=== PATIENT | female | born 1990 | race Caucasian/White ===

== ENCOUNTER → 2020-01-21 09:50 | Outpatient (BNVA) | payer BC, SELFPAY | PROVIDERS: Family Provider Family Medicine; Visit Provider Nurse Practitioner Family | DX: R63.5 Abnormal weight gain (principal); E55.9 Vitamin D deficiency, unspecified; R53.83 Other fatigue; Z13.6 Encounter for screening for cardiovascular disorders; Z79.899 Other long term (current) drug therapy | CPT/HCPCS: 36415; 80053; 80061; 81003; 82306; 83036; 84439; 84443; 84481; 85025 ==

== ENCOUNTER 2020-10-17 15:15 | Outpatient (CLI) | payer BC, OTHER, SELFPAY ==
--- NOTE | 2020-10-17 15:30 | US_ITS ---
WS: [id number] ULTRASOUND EARLY TECHNIQUE: Transabdominal sonography of the pelvis was performed. Followed by transvaginal sonography to better evaluate the uterus and ovaries. CLINICAL INFORMATION: SUPERVISION NORMAL PG LMP: 08/13/2020 Beta hCG: Unknown. COMPARISON: None. FINDINGS: Cervix is long and closed. UTERUS AND GESTATIONAL SAC Intrauterine gestations: Single live intrauterine with visualized cardiac activity. Estimated gestational age: 9w3d Yolk sac: 0.6 cm. [facility] rump length (CRL): 2.6 cm. heart motion: 171 BPM. Subchorionic hemorrhage: Present measuring 2.9 x 2.5 x 1.8 cm OVARIES Right ovary: Not seen Left ovary: Normal. FREE FLUID None. US/US OB <= 14 weeks fetus [id number] IMPRESSION: 1. Single live intrauterine with cardiac activity. 2. Estimated gestational age; 9w3d with estimated delivery May 19, 2021 3. Small amount of subchorionic hemorrhage measuring 2.9 x 2.5 x 1.8 cm. Recom mend short interval follow-up. 4. Cervix is long and closed. 5. No free fluid in the cul-de-sac.
== END 2020-10-17 15:16 | disposition home or self-care (01) ==
LOC: US 15:22
PROVIDERS: PCP Family Medicine; Visit Provider Family Medicine
DX: Z34.81 Encounter for supervision of other normal pregnancy, first trimester; Z3A.09 9 weeks gestation of pregnancy
CPT/HCPCS: 76801

== ENCOUNTER 2021-05-13 16:07 | Inpatient (IN) | payer BC, SELFPAY ==
--- NOTE | 2020-12-29 10:15 | US_ITS ---
WS: [id number] OBSTETRICAL ULTRASOUND COMPLETE HISTORY: ANATOMY/NORMAL ,MULTIPAROUS COMPARISON: 10/17/2020 Single intrauterine gestation in Cephalic presentation. Cervix is Closed and normal length. Cervical length is 4.7 cm. Normal amount of amniotic fluid surrounds the fetus. Placenta: Posterior and fundal. Placenta grade 1 Heart: 131 BPM. Four chambers are identified. RIGHT and LEFT outflow tracts are unremarkable. Anatomy: There is a very tiny choroid plexus cyst on the RIGHT measuring 4 mm. Typically an incidenta l finding. Otherwise the spine and intracranial structures are negative. kidneys, stomach and u rinary bladder are unremarkable. Abdominal wall, three-vessel cord and cord insertion site are normal . 4 extremities are present. profile: Limited. Gender: Male. measurements: BPD = 4.7 cm = 20w2d HC = 18.0 cm = 20w3d AC = 15.1 cm = 20w2d FL = 3.4 cm = 20w4d EFW: 352 g. Biometry is internally concordant. AGA by ultrasound: 20w3d DEBBIE by ultrasound: 05/15/2021 US/US OB >= 14 weeks fetus [id number] IMPRESSION: 1. Single intrauterine gestation of 20w3d with an DEBBIE of 05/15/2021. Appropria te growth since the first trimester ultrasound. 2. Single RIGHT choroid plexus cyst measures 4 mm. As an isolated finding this is usually of no consequence. 3. Poor visualization of the nose and lips.
[2021-05-13] VITALS (21 sets, daily range): BP systolic 103–130; BP diastolic 58–84; PULSE 56–190; RESP 17; BMI 39.5
--- NOTE | 2021-05-13 16:30 | P.HP_ITS ---
Providers/Chief Complaint Admitting Physician: Chavo Sanon MD Primary Care Provider: Chavo Sanon MD Chief Complaint: ANATOMY SCAN Z34.80 History of Present Illness Cheryl Vera is a 30 year old G3, P1 at 39.0 weeks gestation by LMP consistent with 7-week ultrasound. Her is complicated by rapid weight gain, history of third-degree laceration, anemia, COVID-19 infection February 2021. The patient requested to be induced electively at 39 weeks and is here for a scheduled induction The patient currently feels well. She denies any chest pains, shortness of breath, fever, cough, nausea, vomiting, diarrhea, constipation, dysuria. She denies any leakage of fluid, vaginal bleeding, significant contractions. Medications/Allergies Home Medications Medication Instructions Recorded Confirmed Last Taken Type citalopram 10 mg tablet (Celexa) 10 mg PO DAILY 30 Days #30 tab 12/05/19 07/21/20 Unknown Rx methylprednisolone 4 mg tablets in See Rx Instructions PO PER PKG DIR 07/21/20 07/21/20 Unknown Rx a dose pack (Medrol (Edward)) #21 ea Allergies Allergy/AdvReac Type Severity Reaction Status Date / Time Sulfa (Sulfonamide Allergy Intermediate rash Verified 07/21/20 11:50 Antibiotics) PFSH Acute PFSH: Medical History (Updated 05/13/21 @ 16:35 by Chavo Sanon MD) COVID-19 affecting in third trimester Fatigue Hx of maternal laceration, 3rd degree, currently Hypertension screen Rhus dermatitis Vitamin D deficiency Weight gain Surgical History (Updated 05/13/21 @ 16:35 by Chavo Sanon MD) History of tonsillectomy Social History Smoking and tobacco status: never smoked Second hand smoke exposure: No Alcohol intake: never Desire information about alcohol rehabilitation?: No Counseling given: No Desire information about substance/drug rehabilitation?: No Counseling given: No Physical Exam Narrative: General: Alert and oriented x3 Eyes: Pupils equal round and reactive to light and accommodation Mouth: Mucous membranes moist, pharynx non-erythematous Cardiac: Regular rate and rhythm without murmurs Lungs: Clear to auscultation bilaterally without wheezes, crackles or rhonchi Abdomen: Soft, non-tender, fundus consistent with gestational age Cervix:260/-3/soft/mid Extremities: Trace edema in the bilateral lower extremities A&P Assessment and plan (1) Intrauterine : Status: Acute (2) Anemia: Status: Acute Plan The patient is currently doing well. heart tones are in the mid 150s with moderate variability and good accelerations. She has a category 1 heart tone tracing. The patient is francesco every 2 to 3 minutes. The patient is GBS negative. Since the patient had Covid in February, no testing was done on a routine basis for this admission. The patient wishes to have a bilateral tubal ligation only if she were to need a section. Overall the patient is doing well and we will proceed with induction of labor using Pitocin. All questions were answered. Attestations Medical Necessity Statement*: The patient will be here for greater than 2 midnights due to routine intrapartum and management of labor and delivery. 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
[2021-05-13 17:06] LABS: Basophils # 0.1 10^3/uL (0.0-0.1); Basophils % 0.4 %; Eosinophils % 0.3 %; Hematocrit 35.6 % (37.0-47.0); Lymphocytes # 1.9 10^3/uL (0.8-4.8); Lymphocytes % 16.4 %; Mean Corpuscular HGB Conc 33.7 g/dL (30.0-36.0); Mean Corpuscular Hemoglobin 29.1 pg (28.0-34.0); Mean Corpuscular Volume 86.4 fl (81-99); Mean Platelet Volume 11.7 fL (7.4-10.4); Monocytes # 0.9 10^3/uL (0.2-0.9); Monocytes % 8.3 %; Neutrophils # 8.22 10^3/uL (1.8-7.7); Neutrophils % 72.6 %; Nucleated Red Blood Cells % 0 %; Platelet Count 156 10^3/cmm (130-400); Red Blood Count 4.12 10^6/uL (4.1-5.3); Red Cell Distribution Width 13.5 % (12.1-15.1); White Blood Count 11.3 10^3/uL (4.0-10.0)
[2021-05-13] MEDS: dextrose 5%-lactated ringers 1,000 ML 125 ML IV (17:43)
[2021-05-13] MEDS: oxytocin 30 UNIT/500 ML BAG IV (17:43)
[2021-05-13] MEDS: butorphanol 2 mg/mL SDV 1 mL 1 MG IVP (23:21)
[2021-05-14] VITALS (97 sets, daily range): BP systolic 86–155; BP diastolic 51–89; PULSE 59–123; RESP 16–18; TEMP 36.3–37.2; O2SAT 98–100
[2021-05-14] MEDS: lactated ringers 1,000 ML 999 ML IV ×2 (01:14→02:14)
[2021-05-14] MEDS: butorphanol 2 mg/mL SDV 1 mL 1 MG IVP (01:20)
--- NOTE | 2021-05-14 02:37 | P.ANESASSM_ITS ---
Pre-Anesthetic Assessment Height/Weight: Height 1.68 m Weight 111.13 kg Pulse Resp BP Pulse Ox 107 H 17 104/52 100 05/14/21 02:33 05/13/21 17:00 05/14/21 02:33 05/14/21 02:28 Preop Diagnosis: Labor pain VIDYA Was Beta Juliet taken within 24 hours: N/A Was Clonidine taken within 24 hours: N/A Social No alcohol and No tobacco Exam alert, oriented x 3, clear to auscultation bilaterally and regular rate & rhythm Airway Submandibular: within normal limits Cervical ROM: within normal limits Mallampati: Class II Dentition: full History/ROS No significant history except as noted and No significant complaints Pulmonary None reported CV/HEM None reported None reported Hepatic None reported GI Gastroesophageal Reflux Disease Metabolic None reported Musc/skel None reported Neuropsych None reported Anesthetic Plan ASA status: 2 Anesthesia: Anesthesia Evaluation and Regional (specify below) Other: VIDYA Risk of > 500 ml blood loss (7ml/kg in children): No Medications/Allergies Home Medications Medication Instructions Recorded Confirmed Last Taken Type citalopram 10 mg tablet (Celexa) 10 mg PO DAILY 30 Days #30 tab 12/05/19 05/0 06/08 Unknown Rx methylprednisolone 4 mg tablets in See Rx Instructions PO PER PKG DIR 07/21/20 07/21/20 Unknown Rx a dose pack (Medrol (Edward)) #21 ea Allergies Allergy/AdvReac Type Severity Reaction Status Date / Time Sulfa (Sulfonamide Allergy Intermediate rash Verified 07/21/20 11:50 Antibiotics) Current Medications Generic Name Dose Route Start Last Admin Trade Name Freq PRN Reason Stop Dose Admin Butorphanol Tartrate 1 mg 05/13/21 23:14 05/14/21 01:20 Butorphanol 2 Mg/Ml Sdv 1 Ml IVP 1 mg Q2H PRN Administration SEVERE PAIN Oxytocin 30 unit in 500 mls @ 1 mls/hr 05/13/21 17:00 05/13/21 21:15 Pitocin IV 20 milliunit/min .Q24H DENISE 20 mls/hr Titration Protocol 1 MILLIUNIT/MIN Dextrose/Lactated Ringer's 1,000 mls @ 125 mls/hr 05/13/21 17:00 05/14/21 01 :14 Dextrose 5%-Lactated Ringers IV Infused .Q8H DENISE Infusion Lactated Ringer's 1,000 mls @ 999 mls/hr 05/14/21 01:08 05/14/21 01:14 Lactated Ringers IV 999 mls/hr .Q1H1M PRN Administration See label comments PFSH Anesthesia Medical History (Updated 05/13/21 @ 16:35 by Chavo Sanon MD) COVID-19 affecting in third trimester Fatigue Hx of maternal laceration, 3rd degree, currently Hypertension screen Rhus dermatitis Vitamin D deficiency Weight gain Surgical History (Updated 05/13/21 @ 16:35 by Chavo Sanon MD) History of tonsillectomy Social History Smoking and tobacco status: never smoked Second hand smoke exposure: No Alcohol intake: never Desire information about alcohol rehabilitation?: No Counseling given: No Desire information about substance/drug rehabilitation?: No Counseling given: No Female Reproductive History : 2 Data Anesthesia : 05/13/21 16:46 Short CBC 05/13/21 Range/Units 16:46 WBC 11.3 H (4.0-10.0) 10^3/uL Hgb 12.0 (11.5-15.3) g/dL Hct 35.6 L (37.0-47.0) % MCV 86.4 (81-99) fl Plt Count 156 (130-400) 10^3/cmm Neut % (Auto) 72.6 % Neut # (Auto) 8.22 H (1.8-7.7) 10^3/uL Cardiac Studies: No Data to Display
--- NOTE | 2021-05-14 02:38 | P.ANES_ITS ---
Anesthesia Procedures Procedure/Date: 05/14/21 Epidural: Time Out Performed: Yes Consents Signed: Procedure Consent Consent: from patient, risks and benefits reviewed and patient agrees to proceed Lumbar Level: L3-L4 Epidural position: sitting Epidural procedure: sterile prep of area, 1% lidocaine to numb the area, 18 g needle, negative for p aresthesia passed, neg for paresthesia, test dose given, 1.5% xylocaine 1:200k epi (5cc), 0.2% Ropivacaine bolus ml (4cc and Fentanyl 100mcg), no systemic response, sterile dressing applied, L.U.D. no apparent complications and 0.2% Ropiavacaine @ mls/hr (13cc/hour) Additional Comments: BRISA at 7cm. Cath passed 2cm into epid space. Pt tolerated well
[2021-05-14] MEDS: dextrose 5%-lactated ringers 1,000 ML 125 ML IV ×2 (03:14→08:10)
--- NOTE | 2021-05-14 07:07 | PM.MISC ---
Miscellaneous Note Note: The patient's heart tones are currently in the mid 140s with moderate variability and good accelerations. Currently she has a category 1 tracing. She is francesco every 1 to 2 minutes on 7 units of Pitocin. She is currently 8 cm dilated and is noted to have some swelling on the anterior cervix. head position is still -3 and not distended well with contractions. Possible causes for this would be OP positioning versus cephalic pelvic disproportion. We will try some different position changes to relieve this. If this is not successful, a section may need to be considered. We will continue to follow based on findings. I discussed this with the patient and she is in agreement with the current plan of care.
--- NOTE | 2021-05-14 10:53 | PM.DELIVERY ---
Delivery Note: Date of delivery: May 14, 2021 Pre-delivery diagnoses: 1. Intrauterine at 39.1 weeks gestation 2. Rapid weight gain 3. History of third-degree laceration 4. Anemia 5. COVID-19 infection in February 2021 Post-delivery diagnoses: 1. Intrauterine status post spontaneous vaginal delivery at 39.1 weeks gestation 2. Rapid weight gain 3. History of third-degree laceration 4. Anemia 5. COVID-19 infection in February 2021 6. Delivery of healthy male weighing 9 pounds 8 ounces with Apgars of 8 and 9 Procedure: Spontaneous vaginal delivery Delivering Physician: Chavo Sanon MD Estimated blood loss (mL): 200 Findings: Cheryl Vera is a 30 year old G3 now P2 status post spontaneous vaginal delivery at 39.1 weeks gestation by LMP consistent with 7-week ultrasound.? Her was complicated by rapid weight gain, history of third-degree laceration, anemia, COVID-19 infection February 2021. Pre-Delivery Course: The patient presented to labor and delivery triage on 05/13/2021 for a scheduled elective induction of labor. The patient was 2 cm upon presentation and started on IV Pitocin. She made gradual change and had regular contractions. SROM took place at 1:42 AM on 05/14/2021. Clear fluid was noted. The patient continued to make change, however it was slower than the expected labor curve. There was concern that the 's head was not descending properly, but after some position changes, the descended and the patient was complete at 9:02 AM on 05/14/2021. Delivery: The patient began pushing at 9:14 AM on 05/14/2021. The patient pushed well and the delivered at 9:36 AM on 05/14/2021 in the OA position. The left shoulder was the anterior shoulder and it delivered with steady downward pressure. The rest of the infant delivered without complication. The 's mouth and nose were bulb suctioned by myself and the infant was placed on the mother's chest where the nurses were waiting to care for him. The cord was clamped after approximately 1 minute by myself, and cut by the 's father. The cord was then drained of blood and a sample was obtained. Traction was placed on the umbilical cord and the uterus was massaged. The placenta delivered without complication at 9:42 AM on 05/14/2021. The placenta was noted to be intact with a central umbilical cord insertion site. The uterus was massaged and there was little bleeding. The vaginal wall was inspected and a second-degree laceration was noted in the perineal region. The patient's epidural was providing adequate anesthesia. 3-0 Vicryl was used to repair the laceration in a running fashion. A rectal exam was done and no sutures were noted in the rectal vault. The patient tolerated the procedure well. Currently both the mother and infant are doing well. 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
--- NOTE | 2021-05-14 13:40 | PC.NURSE ---
1240 PT UP TO BATHROOM INSTRUCTED ON PERICARE,ETEC, THEN PT AMBULATED TO OB 7, ORIENTED TO ROOM, CALL LIGHT AND BED CONTROLS. TOLD HER THAT I WOULD LIKE TO HELP HER UP ONCE MORE AND THEN SHE CAN BE UP ON HER OWN.
[2021-05-14] MEDS: ibuprofen 800 mg tablet PO ×2 (15:21→21:03)
[2021-05-14] MEDS: lanolin oint 7 gm 1 APPLIC TOPICAL (15:28)
[2021-05-14] MEDS: benzocaine-menthol 78 gm Canister 1 SPRAY TOPICAL (15:29)
[2021-05-15 04:00] VITALS: BP 105/68; PULSE 72; RESP 16; TEMP 36.8; O2SAT 98
[2021-05-15 04:02] LABS: Hematocrit 29.5 % (37.0-47.0); Hemoglobin 9.7 g/dL (11.5-15.3); Mean Corpuscular HGB Conc 32.9 g/dL (30.0-36.0); Mean Corpuscular Hemoglobin 28.9 pg (28.0-34.0); Mean Corpuscular Volume 87.8 fl (81-99); Mean Platelet Volume 11.6 fL (7.4-10.4); Platelet Count 137 10^3/cmm (130-400); Red Blood Count 3.36 10^6/uL (4.1-5.3); Red Cell Distribution Width 13.6 % (12.1-15.1); White Blood Count 14.6 10^3/uL (4.0-10.0)
--- NOTE | 2021-05-15 07:15 | PM.DCS ---
Discharge Providers Date of Admission: 05/13/21 16:07 Date of Discharge: May 15, 2021 Attending Provider at Admission: Chavo Sanon MD Attending Provider at Discharge: Chavo Sanon MD Primary Care Provider: Chavo Sanon MD Diagnoses at Discharge Discharge Diagnosis (1) Intrauterine : Status: Resolved (2) Anemia: Status: Acute Other Information Additional DC diagnoses/information: 1.? Intrauterine status post spontaneous vaginal delivery at 39.1 weeks gestation 2.? Rapid weight gain 3.? History of third-degree laceration 4.? Anemia 5.? COVID-19 infection in February 2021 6.? Delivery of healthy infant male weighing 9 pounds 8 ounces with Apgars of 8 and 9? Reason for Visit Reason for Visit: ANATOMY SCAN Z34.80 Hospital Course Hospital Course The patient presented to labor and delivery triage on 05/13/2021 for a scheduled elective induction of labor.? The patient was 2 cm upon presentation and started on IV Pitocin.? She made gradual change and had regular contractions.? SROM took place at 1:42 AM on 05/14/2021.? Clear fluid was noted.? The patient continued to make change, however it was slower than the expected labor curve.? There was concern that the infant's head was not descending properly, but after some position changes, the infant descended and the patient was complete at 9:02 AM on 05/14/2021. The patient began pushing at 9:14 AM on 05/14/2021.? The patient pushed well and the infant delivered at 9:36 AM on 05/14/2021 in the OA position.? The left shoulder was the anterior shoulder and it delivered with steady downward pressure.? The rest of the infant delivered without complication.? The 's mouth and nose were bulb suctioned by myself and the infant was placed on the mother's chest where the nurses were waiting to care for him.? The cord was clamped after approximately 1 minute by myself, and cut by the infant's father.? The cord was then drained of blood and a sample was obtained.? Traction was placed on the umbilical cord and the uterus was massaged.? The placenta delivered without complication at 9:42 AM on 05/14/2021.? The placenta was noted to be intact with a central umbilical cord insertion site.? The uterus was massaged and there was little bleeding.? The vaginal wall was inspected and a second-degree laceration was noted in the perineal region.? The patient's epidural was providing adequate anesthesia.? 3-0 Vicryl was used to repair the laceration in a running fashion.? A rectal exam was done and no sutures were noted in the rectal vault.? The patient tolerated the procedure well.? the patient is doing well. She is ambulating, voiding, passing gas and tolerating food by mouth. Her pain is well controlled. Her bleeding is decreasing well. She is showing no signs of complications. We will plan to discharge home this afternoon and follow-up with me in clinic at 6 weeks or sooner if needed. Routine discharge instructions were discussed. All questions were answered. The patient and her are in agreement with current plan of care. Physical Exam Narrative: General: Alert and oriented x3 Cardiac: Regular rate and rhythm without murmurs Lungs: Clear to auscultation bilaterally without wheezes, crackles or rhonchi Abdomen: Soft, mild tenderness over uterus. The uterus is firm and 2 cm below the umbilicus. Extremities: Trace edema in the bilateral lower extremities Urinary Catheter Management: Warner: Cath Placed During This Visit: yes, but has since been removed by the nurse Reason for Continuing Indwelling Catheter: Required Immobilization for Trauma or Surgery or Anesthesia Urinary Catheter Date of Insertion: 05/14/21 Urinary Catheter Time of Insertion: 03:12 Date Urinary Catheter Removed: 05/14/21 Time Urinary Catheter Discontinued: 09:05 Discharge Data Studies Completed and Pending Completed Studies During Hospitalization Category Date Time Status US OB >= 14 weeks fetus [id number] Routine Ultrasound 12/29/20 10:15 Completed Radiology Impressions Ultrasound 12/29/20 10:15 IMPRESSION: 1. Single intrauterine gestation of 20w3d with an DEBBIE of 05/15/2021. Appropriate growth since the first trimester ultrasound. 2. Single RIGHT choroid plexus cyst measures 4 mm. As an isolated finding this is usually of no consequence. 3. Poor visualization of the nose and lips. Laboratory Results WBC 14.6 10^3/uL (4.0-10.0) H 05/15/21 02:53 RBC 3.36 10^6/uL (4.1-5.3) L 05/15/21 02:53 Hgb 9.7 g/dL (11.5-15.3) L 05/15/21 02:53 Hct 29.5 % (37.0-47.0) L 05/15/21 02:53 MCV 87.8 fl (81-99) 05/15/21 02:53 MCH 28.9 pg (28.0-34.0) 05/15/21 02:53 MCHC 32.9 g/dL (30.0-36.0) 05/15/21 02:53 RDW 13.6 % (12.1-15.1) 05/15/21 02:53 Plt Count 137 10^3/cmm (130-400) 05/15/21 02:53 MPV 11.6 fL (7.4-10.4) H 05/15/21 02:53 Neut % (Auto) 72.6 % 05/13/21 16:46 Lymph % (Auto) 16.4 % 05/13/21 16:46 [place] % (Auto) 8.3 % 05/13/21 16:46 Eos % (Auto) 0.3 % 05/13/21 16:46 Baso % (Auto) 0.4 % 05/13/21 16:46 Neut # (Auto) 8.22 10^3/uL (1.8-7.7) H 05/13/21 16:46 Lymph # (Auto) 1.9 10^3/uL (0.8-4.8) 05/13/21 16:46 [place] # (Auto) 0.9 10^3/uL (0.2-0.9) 05/13/21 16:46 Eos # (Auto) 0.0 10^3/uL (0.0-0.8) 05/13/21 16:46 Baso # (Auto) 0.1 10^3/uL (0.0-0.1) 05/13/21 16:46 Nucleated RBC % (auto) 0 % 05/13/21 16:46 Nucleated RBCs # 0.0 /100WBC 05/13/21 16:46 Vitals Last Vital Signs Temp 98.2 F 05/15/21 04:00 Pulse 72 05/15/21 04:00 Resp 16 05/15/21 04:00 BP 105/68 05/15/21 04:00 Pulse Ox 98 05/15/21 04:00 Discharge Plan Discharge Patient Disposition: Home Condition: Good Prescriptions: New ibuprofen 800 mg Tablet 800 mg PO TID Qty: 60 0RF hydrocodone-acetaminophen 5-325 mg Tablet 1 tab PO Q6H PRN (Reason: Moderate To Severe Pain) Qty: 15 0RF docusate sodium 100 mg Capsule 100 mg PO BID Qty: 30 0RF ferrous sulfate 325 mg (65 mg iron) Tablet,Delayed Release (Dr/Ec) 325 mg PO BIDWMEAL Qty: 30 0RF Continued citalopram [Celexa] 10 mg tablet 10 mg PO DAILY 30 Days Qty: 30 0RF Discontinued methylprednisolone [Medrol (Edward)] 4 mg tablets,dose pack See Rx Instructions PO PER PKG DIR Qty: 21 0RF Rx Instructions: PO PER PKG DIR PO per package directions; Discharge Orders: Discharge Order (Routine); Ordered 05/15/21 Ordered By: Chavo Sanon Referrals: Chavo Sanon MD [Primary Care Provider] - 6 Weeks (Please Call to schedule a 6 week post- visit. ) Discharge Diet: Regular Discharge Activity: Increase activity as tolerated Patient Instructions: Depression (DC), Expression, Collection and Storage of Breast Milk (DC), Bleeding (DC), Preeclampsia and Eclampsia After Delivery (GEN), OB Discharge Report, OB Food/Drug Interaction Guide, OB Care at Home, Opioid Safety, OB Vaginal Deliveries Activity Restrictions/Additional Instructions: Nothing per vagina for 6 weeks. Discharge Attestations Time Spent in Discharge Care*: greater than 30 min Quality Metrics Clinical Quality Measures [ No reported AMI, CVA or VTE this stay] Coding Level of Care Code Acute Chg FW DC note Diagnoses Intrauterine Z34.90 Anemia D64.9
[2021-05-15] MEDS: ibuprofen 800 mg tablet PO (08:41)
[2021-05-15] MEDS: docusate sodium 100 mg Capsule PO (08:41)
[2021-05-15] MEDS: prenatal vitamin Capsule 1 CAP PO (08:41)
[2021-05-15] MEDS: ferrous sulfate EC 325 mg Tablet PO (08:42)
[2021-05-15 12:00] VITALS: BP 123/76; PULSE 73; RESP 16; TEMP 36.8
--- NOTE | 2021-05-18 11:52 | ANE.PACU2 ---
Inpatient post-anesthesia follow up: Airway intact: Yes Vital signs: Temperature 98.2 F Pulse Rate 73 Respiratory Rate 16 Blood Pressure 123/76 Pulse Oximetry 98 Oxygen Delivery Me thod Room Air Oxygen Flow Rate Fraction of Inspir ed Oxygen Hydration adequate: Yes Nausea and vomiting: No Pain level: 2 Mental status: Baseline
== END 2021-05-15 12:10 | disposition home or self-care (01) | DRG 807 ==
LOC: OBGYN 16:07
PROVIDERS: Admitting Provider Family Medicine; PCP Family Medicine; Visit Provider Family Medicine
DX: O99.02 Anemia complicating childbirth; Z37.0 Single live birth; D64.9 Anemia, unspecified; O70.1 Second degree perineal laceration during delivery; Z3A.39 39 weeks gestation of pregnancy; Z86.16 Personal history of COVID-19
CPT/HCPCS: 36415; 51702; 59025; 59409; 76805; 85025; 85027; 99211; J0595; J2795; J3010

== ENCOUNTER → 2023-02-23 08:53 | Outpatient (BNVA) | payer BC, SELFPAY | PROVIDERS: PCP Family Medicine; Visit Provider Nurse Practitioner Family | DX: R63.5 Abnormal weight gain (principal); R53.83 Other fatigue; D64.9 Anemia, unspecified; Z13.6 Encounter for screening for cardiovascular disorders; Z79.899 Other long term (current) drug therapy | CPT/HCPCS: 80053; 80061; 81003; 82306; 83036; 84443; 85025 ==